=== PATIENT | female | born 1965 | race Caucasian/White ===

== ENCOUNTER 2022-10-15 13:48 | Emergency (ER) | payer OTHER ==
[~2022-10-15] VITALS: Ht 162.6 cm; Wt 103.2 kg
[2022-10-15 15:09] VITALS: BP 158/79
== END 2022-10-15 15:33 | disposition home or self-care (01) ==
LOC: M ED 13:48
DX: S83.92XA Sprain of unspecified site of left knee, initial encounter (principal); X50.1XXA Overexertion from prolonged static or awkward postures, initial encounter; M25.462 Effusion, left knee; I83.90 Asymptomatic varicose veins of unspecified lower extremity; J30.89 Other allergic rhinitis